=== PATIENT | female | born 1945 | race Caucasian/White ===

== ENCOUNTER → 2017-06-14 | Outpatient (CLI) | payer OTHER ==
[~2017-06-14] VITALS: Ht 164.5 cm; Wt 62.7 kg
[~2017-06-14] MED LIST: ADVAIR 250/501 DISK IH; ALBUTEROL2.5 MG/0.5; ALBUTEROL2.5 MG/3 M IH; AMBIEN10 MG PO; CALCIUM 600 +1 EA16 PO; CALTRATE 600+D1 EAC1 PO; CALTRATE 600600 MG PO; CALTRATE PLUS1 EACH PO; CENTRUM SILVER1 EAC3 PO; CIPRO500 MG PO; DULERA 200 MCG/13 GM IH; FLONASE16 G1 BOTH NARES; LEVOFLOXACIN750 MG PO; MIRALAX119 GM PO; MIRALAX17 GM PO; NEURONTIN300 MG PO; OMEPRAZOLE40 M1 PO; PRAVACHOL20 MG PO; PRED FORTE100 DROP/5 RIGHT EYE; PREDNISONE10 MG PO; PRILOSEC OTC20 MG PO; RECLAST5 MG/100 M IV; SINGULAIR10 MG PO; ST. JOSEPH ASPI81 MG PO; SYMBICORT60 INHALAT IH; TESSALON PERLE100 MG PO; VENTOLIN HFA18 GM IH; VITAMIN E400 UNIT PO
[2017-06-14 15:54] VITALS: BP 132/77
== END | disposition home or self-care (01) ==
LOC: IVINF 06-08 10:00
DX: M81.0 Age-related osteoporosis without current pathological fracture (principal)
CPT/HCPCS: 96365; J3489

== ENCOUNTER → 2017-11-27 | Outpatient (CLI) | payer OTHER | END | disposition home or self-care (01) | LOC: NUC 09:47 | DX: M84.48XA Pathological fracture, other site, initial encounter for fracture (principal); M46.97 Unspecified inflammatory spondylopathy, lumbosacral region; M17.11 Unilateral primary osteoarthritis, right knee; M22.2X1 Patellofemoral disorders, right knee; M22.2X2 Patellofemoral disorders, left knee; M19.072 Primary osteoarthritis, left ankle and foot; M19.071 Primary osteoarthritis, right ankle and foot; R93.7 Abnormal findings on diagnostic imaging of other parts of musculoskeletal system; Z85.3 Personal history of malignant neoplasm of breast | CPT/HCPCS: 78306; 78999; A9503 ==